=== PATIENT | female | born 1960 | race African-American/Black ===

== ENCOUNTER 2021-01-06 17:14 | Emergency (ER) | payer BC ==
[~2021-01-06] VITALS: Ht 162.6 cm; Wt 88.6 kg
[2021-01-06] MEDS ORDERED: IV NORMAL SALINE 1000ML BAG 1,000 ML IV SCH (17:45)
--- NOTE | 2021-01-06 18:21 | EKG ---
[facility] [address] [place] [address] Test Date: 2021-01-06 Test Time: 18:13:16 Pat Name: HERNANDEZ BRAN Department: Room: Gender: F [employer]: : 1960 Requested By: CASEY MACEDO Order Number: [id number] Reading MD: Measurements Intervals [place] Rate: 74 P: 43 RI: 172 QRS: -29 QRSD: 90 T: -2 QT: 378 QTc: 420 Interpretive Statements SINUS RHYTHM LEFTWARD AXIS OTHERWISE NORMAL ECG RI6.01 No previous ECG available for comparison
--- NOTE | 2021-01-06 18:23 | PHYS DOC ---
General Adult EDM: Chief Complaint: DIZZY/LIGHT HEADED HPI: HPI: Patient is a 60 year old female who presents with was Covid positive as of January 01. She states she has been checking her blood pressure and her O2 at home. She states that today has been running in the 150s over 100s. Patient denies headache, dizziness, syncope, chest pain, shortness of breath, fever, abdominal pain, nausea, vomiting, diarrhea. Upon her arrival here today her vital signs are completely normal. Patient does have a history of hypertension high cholesterol and anxiety. She denies any pain. Review of Systems: Review of Systems: Constitutional: Denies fever or chills. [] Eyes: Denies change in visual acuity. [] HENT: Denies nasal congestion or sore throat. [] Respiratory: Denies cough or shortness of breath. [] Cardiovascular: Denies chest pain or edema. + Concerned about blood pressure readings [] GI: Denies abdominal pain, nausea, vomiting, bloody stools or diarrhea. [] : Denies dysuria. [] Musculoskeletal: Denies back pain or joint pain. [] Integument: Denies rash. [] Neurologic: Denies headache, focal weakness or sensory changes. [] Endocrine: Denies polyuria or polydipsia. [] Lymphatic: Denies swollen glands. [] Psychiatric: Denies depression or anxiety. [] Heart Score: C/O Chest Pain: No Risk Factors: Risk Factors: DM, Current or recent (<one month) smoker, HTN, HLP, family history of CAD, obesity. Risk Scores: Score 0 - 3: 2.5% MACE over next 6 weeks - Discharge Home Score 4 - 6: 20.3% MACE over next 6 weeks - Admit for Clinical Observation Score 7 - 10: 72.7% MACE over next 6 weeks - Early Invasive Strategies Current Medications: Current Medications Medications (Trade) Dose Ordered Sig/Hailey Start Time Stop Time Status Last Admin Dose Admin Sodium Chloride 1,000 ml @ 1,000 mls/hr Q1H 01/06/21 17:45 01/06/21 18:44 UNV Physical Exam: PE: Constitutional: Well developed, well nourished, no acute distress, non-toxic appearance. [] HENT: Normocephalic, atraumatic, bilateral external ears normal, oropharynx moist, no oral exudates, nose normal. [] Eyes: PERRLA, EOMI, conjunctiva normal, no discharge. [] Neck: Normal range of motion, no tenderness, supple, no stridor. [] Cardiovascular:Heart rate regular rhythm, no murmur [] Lungs & Thorax: Bilateral breath sounds clear to auscultation [] Abdomen: Bowel sounds normal, soft, no tenderness, no masses, no pulsatile masses. [] Skin: Warm, dry, no erythema, no rash. [] Back: No tenderness, no CVA tenderness. [] Extremities: No tenderness, no cyanosis, no clubbing, ROM intact, no edema. [] Neurologic: Alert and oriented X 3, normal motor function, normal sensory function, no focal deficits noted. [] Psychologic: Affect normal, judgement normal, mood normal. Normal physical exam [] EKG: EK ordered by Dr. Jacobs is sinus rhythm and no STEMI Radiology/Procedures: Radiology/Procedures: [] Impression: [facility] [address] [place], [place] [id number] IMAGING REPORT Signed PATIENT: HERNANDEZ BRAN LACCOUNT: [id number] : 1960 LOCATION: ER AGE: 60 SEX: F EXAM STATUS: REG ER ORD. PHYSICIAN: CASEY MACEDO APRN REASON: dizziness, covid+ PROCEDURE: PORTABLE CHEST 1V EXAM: CHEST 1 VIEW History: Dizziness COMPARISON: None available. TECHNIQUE: Single portable radiograph of the chest FINDINGS: Mild cardiomegaly. Faint scattered airspace opacities bilateral lungs likely infiltrates or atypical or viral pneumonia.. The costophrenic sulci are clear and well demarcated. IMPRESSION: Faint scattered airspace opacities bilateral lungs likely infiltrates or atypical or viral pneumonia. Electronically signed by: Robert Sierra MD (01/06/2021 7:33 PM) [id number] DICTATED and SIGNED BY: ROBERT SIERRA MD DATE: 01/06/21 [id number] 0 Course & Med Decision Making: Course & Med Decision Making Pertinent Labs and Imaging studies reviewed. (See chart for details) See HPI. Alert and oriented x4. Ambulatory with a steady gait. Speaks in full complete sentences. No extremity edema. Lungs are clear to auscultation all lobes. Afebrile. Skin pink warm and dry. Patient refused her CT head. She stated " she did not need all that". She has no signs of stroke. NIH negative. She is denying any, dizziness. Her troponin was slightly bumped at 0.032. Her second troponin went down to 0.022. Her blood pressure is within normal limits. Patient has no complaints. Her chest x-ray shows pneumonia. She will be placed on azithromycin, ProAir inhaler and a Medrol Dosepak. Patient is not hypoxic and stating she is ready to go. [] Dragon Disclaimer: Dragon Disclaimer: This electronic medical record was generated, in whole or in part, using a voice recognition dictation system. Departure Departure Impression: Primary Impression: Pneumonia due to COVID-19 virus Additional Impression: Anxiety about health Disposition: 01 HOME / SELF CARE / HOMELESS Condition: STABLE Referrals: UNKNOWN PCP NAME (PCP) Patient Instructions: Pneumonia, Adult Additional Instructions: Take medication as prescribed and with food. If you begin having severe shortness of breath or chest pain return to emergency room. Drink plenty of fluids. Scripts Albuterol Sulfate (PROAIR HFA INHALER) 8.5 Gm Hfa.aer.ad 1 PUFF INH PRN Q6HRS PRN for SHORTNESS OF BREATH, #1 EACH 0 Refills Prov: CASEY MACEDO APRN 01/06/21 Methylprednisolone (MEDROL) 4 Mg Tab.ds.pk 1 PKG PO UD, #1 PKG Prov: CASEY MACEDO APRN 01/06/21 Azithromycin (AZITHROMYCIN TABLET) 250 Mg Tablet 1 PKG PO UD for 5 Days, #6 TAB 0 Refills 2 the first day followed by 1 for days 2-5 Prov: CASEY MACEDO APRN 01/06/21 CASEY MACEDO APRN Jan 06, 2021 18:23
[2021-01-06 18:35] LABS: BILIRUBIN,URINE NEGATIVE (NEG); COLOR,URINE YELLOW; NITRITE,URINE NEGATIVE (NEG); PH,URINE 6.5 (<5.0-8.0); PROTEIN,URINE NEGATIVE (NEG-TRACE); UROBILINOGEN,URINE 0.2 mg/dL (0.2 mg/dL)
[2021-01-06 18:41] LABS: CLARITY,URINE CLEAR
[2021-01-06 18:42] LABS: BACTERIA,URINE 0 /HPF (0-FEW); RBC,URINE 0 /HPF (0-2); WBC,URINE 0 /HPF (0-4)
[2021-01-06 18:43] LABS: BASO % 1 % (0-3); EOS % 0 % (0-3); HEMATOCRIT 39.8 % (36.0-47.0); HEMOGLOBIN 13.2 g/dL (12.0-15.5); LYMPH # 2.4 x10^3/uL (1.0-4.8); LYMPH % 43 % (24-48); MEAN CORPUSCULAR HEMOGLOBIN 32 pg (25-35); MEAN CORPUSCULAR HGB CONC 33 g/dL (31-37); MEAN CORPUSCULAR VOLUME 96 fL (79-100); MONO # 0.9 x10^3/uL (0.0-1.1); MONO % 16 % (0-9); NEUT # 2.2 x10^3/uL (1.8-7.7); NEUT % 40 % (31-73); PLATELET COUNT 331 x10^3/uL (140-400); RED BLOOD COUNT 4.17 x10^6/uL (3.50-5.40); RED CELL DISTRIBUTION WIDTH 13.2 % (11.5-14.5); WHITE BLOOD COUNT 5.6 x10^3/uL (4.0-11.0)
[2021-01-06 19:08] LABS: CREATININE 0.9 mg/dL (0.6-1.0); POTASSIUM 3.3 mmol/L (3.5-5.1)
[2021-01-06 19:13] LABS: ALBUMIN 3.8 g/dL (3.4-5.0); TOTAL BILIRUBIN 0.3 mg/dL (0.2-1.0); TOTAL PROTEIN 7.6 g/dL (6.4-8.2)
--- NOTE | 2021-01-06 19:35 | RAD ---
EXAM: CHEST 1 VIEW History: Dizziness COMPARISON: None available. TECHNIQUE: Single portable radiograph of the chest FINDINGS: Mild cardiomegaly. Faint scattered airspace opacities bilateral lungs likely infiltrates o r atypical or viral pneumonia.. The costophrenic sulci are clear and well demarcated. IMPRESSION: Faint scattered airspace opacities bilateral lungs likely infiltrates or atypical or viral pneumonia. Electronically signed by: Robert Sierra MD (01/06/2021 7:33 PM) [id number]
[2021-01-06] MEDS ORDERED: ALBU2.5V8 INH (20:15)
[2021-01-06] MEDS ORDERED: AZIT250T6 PO (20:15)
[2021-01-06] MEDS ORDERED: METH4TAB2 PO (20:15)
[2021-01-06 21:43] VITALS: BP 125/65
== END 2021-01-06 22:05 | disposition home or self-care (01) ==
LOC: ER 17:14
DX: U07.1 COVID-19 (principal); J12.82 Pneumonia due to coronavirus disease 2019; F41.9 Anxiety disorder, unspecified; I51.7 Cardiomegaly
CPT/HCPCS: 36415; 71045; 80053; 81001; 83880; 84484; 85025; 93005; 96360; 99285; J7030